=== PATIENT | male | born 1965 | race Hispanic/Latino ===

== ENCOUNTER 2023-05-29 16:41 | Emergency (ER) | payer MEDICARE ==
[~2023-05-29] VITALS: Ht 170.2 cm; Wt 74.8 kg
[~2023-05-29 16:41] MED LIST: ACET325T51 PO; ARIP5TAB56 PO; BUPR-74 PO; CARB1TAB38 PO; DOCU-116 PO; HYDR50CA50 PO; LOPE2CAP PO; MOM30 PO; OLAN5TAB76 PO; ONDA4TAB10 PO; PSYLLIUM POWDER PO; TRAZ-185 PO
[2023-05-29 17:25] LABS: BASOPHILS # (AUTO) 0.04 K/uL (0.00-0.20); BASOPHILS % (AUTO) 0.5 % (0.0-5.0); EOSINOPHILS # (AUTO) 0.11 K/uL (0.00-0.70); EOSINOPHILS % (AUTO) 1.4 % (0.0-8.0); HEMATOCRIT 42.8 % (42-54); IMMATURE GRANULOCYTE ABSOLUTE 0.03 K/uL (0-1); LYMPHOCYTES # (AUTO) 1.3 K/uL (1.0-4.8); LYMPHOCYTES % (AUTO) 17.5 % (21.0-51.0); MEAN CORPUSCULAR HEMOGLOBIN 31.2 pg (27.0-33.0); MEAN CORPUSCULAR HGB CONC 34.3 g/dL (32.0-36.0); MEAN CORPUSCULAR VOLUME 90.9 fL (79-99); MONOCYTES # (AUTO) 0.5 K/uL (0.1-1.0); MONOCYTES % (AUTO) 6.8 % (3.0-13.0); NEUTROPHILS # (AUTO) 5.6 K/uL (1.8-7.7); NEUTROPHILS % (AUTO) 73.4 % (40.0-77.0); PLATELET COUNT (AUTO) 315 K/uL (130-400); RED BLOOD CELL COUNT(AUTO) 4.71 MIL/uL (4.50-6.20); RED CELL DISTRIBUTION WIDTH 13.1 % (11.0-15.5); WHITE BLOOD COUNT (AUTO) 7.7 K/uL (4.8-10.8)
[2023-05-29 17:32] LABS: CREATININE 0.9 mg/dL (0.5-1.5); MAGNESIUM 2.1 mg/dL (1.80-2.40); POTASSIUM 3.4 mmol/L (3.5-5.1)
[2023-05-29] MEDS: CARBIDOPA-LEVODOPA 25-100 TAB PO SCH (17:57)
[2023-05-29] MEDS: CARBIDOPA/LEVODOPA ER 50-200 1 EACH TABLET.ER PO SCH (17:57)
[2023-05-29] MEDS: ONDANSETRON ODT 4MG TAB ONE (17:57)
[2023-05-29] MEDS: ONDANSETRON 4MG INJ IVP ONE (17:58)
[2023-05-29] MEDS: MORPHINE 2 MG SYG IM ONE (17:58)
[2023-05-29] MEDS ORDERED: DONE-53 PO (18:43)
[2023-05-29] MEDS ORDERED: CARB1TAB42 PO (18:43)
[2023-05-29] MEDS ORDERED: BUSP10TA3 PO (18:43)
[2023-05-29] MEDS ORDERED: QUET200T30 PO (18:43)
[2023-05-29] MEDS ORDERED: CARB-39 PO (18:43)
[2023-05-29 20:00] VITALS: BP 156/82; PULSE 76; RESP 16; O2SAT 97
== END 2023-05-29 20:21 | disposition home or self-care (01) ==
LOC: EDH 16:41
DX: G20.C Parkinsonism, unspecified (principal); F02.83 Dementia in other diseases classified elsewhere, unspecified severity, with mood disturbance; I10 Essential (primary) hypertension; E11.9 Type 2 diabetes mellitus without complications; F41.9 Anxiety disorder, unspecified; F32.A Depression, unspecified; Z79.899 Other long term (current) drug therapy; Z98.890 Other specified postprocedural states
CPT/HCPCS: 99284; 83735; 84484; 80048; 85025; 36415; 96372; 93005; J2270

== ENCOUNTER 2023-08-18 18:18 | Emergency (ER) | payer MEDICARE ==
[~2023-08-18] VITALS: Ht 167.6 cm; Wt 90.7 kg
[~2023-08-18 18:18] MED LIST changes: -ACET325T51 PO; +ARIP5TAB30 PO; -ARIP5TAB56 PO; -BUPR-74 PO; +BUSP10TA3 PO; +CARB-39 PO; -CARB1TAB38 PO; -DOCU-116 PO; +DONE-53 PO; -HYDR50CA50 PO; -LOPE2CAP PO; -MOM30 PO; -OLAN5TAB76 PO; -ONDA4TAB10 PO; -PSYLLIUM POWDER PO; +QUET200T30 PO; -TRAZ-185 PO
[2023-08-18] MEDS: HYDROXYZINE 50MG VIAL 50 MG/ML VIAL IM ONE (19:45)
[2023-08-18 19:56] VITALS: BP 128/78; PULSE 84; RESP 17; O2SAT 97
== END 2023-08-18 20:00 | disposition home or self-care (01) ==
LOC: EDH 18:18
DX: G20.A1 Parkinson's disease without dyskinesia, without mention of fluctuations (principal); F41.9 Anxiety disorder, unspecified; F32.A Depression, unspecified; F03.90 Unspecified dementia, unspecified severity, without behavioral disturbance, psychotic disturbance, mood disturbance, and anxiety; I10 Essential (primary) hypertension; E11.9 Type 2 diabetes mellitus without complications; Z79.899 Other long term (current) drug therapy; Z98.890 Other specified postprocedural states
CPT/HCPCS: 99283; 96372; J3410